=== PATIENT | female | born 1980 | race Caucasian/White ===

== ENCOUNTER 2017-04-29 15:38 | Inpatient (IN) | payer MEDICARE, MEDICAID ==
[~2017-04-29] VITALS: Ht 177.8 cm; Wt 93.2 kg
[2017-04-29] MEDS ORDERED: METH10SO PO (16:28)
[2017-04-29] MEDS ORDERED: CLON.5 PO (16:28)
[2017-04-29 17:14] LABS: BASOPHILS # (AUTO) 0.04 K/uL (0.00-0.20); BASOPHILS % (AUTO) 0.8 % (0.0-2.0); EOSINOPHILS # (AUTO) 0.07 K/uL (0.00-0.70); EOSINOPHILS % (AUTO) 1.31 % (1.0-6.0); HEMATOCRIT 36.2 % (36-46); HEMOGLOBIN 12.3 g/dL (12.0-16.0); LYMPHOCYTES # (AUTO) 1.5 K/uL (1.0-4.8); LYMPHOCYTES % (AUTO) 28.7 % (22.0-44.0); MEAN CORPUSCULAR HEMOGLOBIN 29.8 pg (26.0-34.0); MEAN CORPUSCULAR HGB CONC 33.9 G/dL (31.0-37.0); MEAN CORPUSCULAR VOLUME 88 fL (80-100); MONOCYTES # (AUTO) 0.6 K/uL (0.1-1.0); MONOCYTES % (AUTO) 10.8 % (2.0-9.0); NEUTROPHILS % (AUTO) 58.4 % (40.0-70.0); PLATELET COUNT (AUTO) 205 K/uL (150-450); RED BLOOD CELL COUNT(AUTO) 4.13 MIL/uL (4.00-5.20); RED CELL DISTRIBUTION WIDTH 13.2 % (11.5-14.5); WHITE BLOOD COUNT (AUTO) 5.2 K/uL (4.5-11.0)
[2017-04-29 17:24] LABS: ANION GAP 8 mmol/L (8-16); CALCIUM, TOTAL 8.7 mg/dL (8.8-10.5); CARBON DIOXIDE 28 mmol/L (22-29); CHLORIDE 105 mmol/L (98-107); CREATININE 0.86 mg/dL (0.60-1.30); GLOMERULAR FILTR. RATE CALC > 60 mL/min (>60); POTASSIUM 3.6 mmol/L (3.5-5.1); SODIUM SERUM 141 mmol/L (136-145); UREA NITROGEN, BLOOD 14 mg/dL (7-18)
[2017-04-29 17:28] LABS: ALANINE AMINOTRANSFERASE 33 U/L (12-78); ALBUMIN 3.6 g/dL (3.4-5.0); ASPARTATE AMINOTRANSFERASE 31 U/L (15-37); BILIRUBIN,TOTAL 0.6 mg/dL (0.1-1.0); TOTAL PROTEIN, SERUM 7.2 g/dL (6.4-8.2)
[2017-04-29] MEDS ORDERED: HALOPERIDOL 5 MG TABLET PO PRN (17:30)
[2017-04-29] MEDS ORDERED: ZOLPIDEM TARTRATE 10 MG TABLET PO PRN (17:30)
[2017-04-29] MEDS ORDERED: LORazepam 2 MG TABLET PO PRN (17:30)
[2017-04-29 18:49] VITALS: BP 127/83
[2017-04-29] MEDS ORDERED: PNEUMOCOCCAL VACCINE POLYVALENT 0.5 ML VIAL [PPSV23] IM ONE (19:15)
[2017-04-29] MEDS ORDERED: BACITRACIN 28.4 GM OINTMENT TP PRN (20:45)
[2017-04-29] MEDS ORDERED: IBUPROFEN 400 MG TABLET PO PRN (21:30)
[2017-04-29] MEDS ORDERED: ACETAMINOPHEN 325 MG TABLET PO PRN (21:30)
[2017-04-30 05:58] VITALS: BP 110/65
[2017-04-30 08:07] VITALS: BP 107/54
[2017-04-30 08:33] LABS: HEMOGLOBIN A1C 5.1 % (4.5-6.2)
[2017-04-30] MEDS: NICOTINE 14 MG/24 HOUR PATCH TD SCH (08:49)
[2017-04-30 09:05] LABS: CHOL/HDL RATIO 2.3 (3.9-5.7); THYROID STIMULATING HORMONE 1.6 uIU/mL (0.36-3.74)
[2017-04-30 16:12] VITALS: BP 124/67
[2017-04-30] MEDS: METHADONE HCL 10 MG TABLET PO SCH (16:58)
[2017-05-01 06:33] VITALS: BP 115/73
[2017-05-01] MEDS ORDERED: METHADONE HCL 10 MG TABLET PO SCH (09:00)
[2017-05-01] MEDS: CITALOPRAM HYDROBROMIDE 20 MG TABLET PO SCH (09:02)
[2017-05-01] MEDS: METHADONE HCL 10 MG TABLET PO SCH (09:03)
[2017-05-01] MEDS: NICOTINE 14 MG/24 HOUR PATCH TD SCH (09:05)
[2017-05-01 09:31] VITALS: BP 111/62
[2017-05-01 16:15] VITALS: BP 117/67
[2017-05-02 06:38] VITALS: BP 117/78
[2017-05-02] MEDS: NICOTINE 14 MG/24 HOUR PATCH TD SCH (08:28)
[2017-05-02] MEDS: METHADONE HCL 10 MG TABLET PO SCH (08:28)
[2017-05-02] MEDS: CITALOPRAM HYDROBROMIDE 20 MG TABLET PO SCH (08:28)
[2017-05-02 08:36] VITALS: BP 112/75
[2017-05-02 16:20] VITALS: BP 101/65
[2017-05-03 06:12] VITALS: BP 109/66
[2017-05-03] MEDS ORDERED: CITA20TA17 PO (08:04)
[2017-05-03 08:06] VITALS: BP 107/72
[2017-05-03 09:01] VITALS: BP 127/78
[2017-05-03] MEDS: METHADONE HCL 10 MG TABLET PO SCH (09:02)
[2017-05-03] MEDS: CITALOPRAM HYDROBROMIDE 20 MG TABLET PO SCH (09:02)
[2017-05-03] MEDS: NICOTINE 14 MG/24 HOUR PATCH TD SCH (09:02)
[2017-05-03 16:05] VITALS: BP 108/61
[2017-05-04 01:12] VITALS: BP 102/63
[2017-05-04 08:07] VITALS: BP 118/75
[2017-05-04] MEDS: NICOTINE 14 MG/24 HOUR PATCH TD SCH (08:20)
[2017-05-04] MEDS: CITALOPRAM HYDROBROMIDE 20 MG TABLET PO SCH (08:20)
[2017-05-04] MEDS: METHADONE HCL 10 MG TABLET PO SCH (08:20)
== END 2017-05-04 14:35 | disposition home or self-care (01) | DRG 881 ==
LOC: EMS 15:41 → B2X 17:46
PROVIDERS: ADMIT Psychiatry & Neurology Psychiatry; ATTEND Psychiatry & Neurology Psychiatry
DX: F32.9 Major depressive disorder, single episode, unspecified (principal); Z88.0 Allergy status to penicillin; Z88.8 Allergy status to other drugs, medicaments and biological substances; F19.10 Other psychoactive substance abuse, uncomplicated; I95.9 Hypotension, unspecified; E83.51 Hypocalcemia
CPT/HCPCS: 83036; 84443; 99285; G0480